=== PATIENT | female | born 1940 | race Caucasian/White ===

== ENCOUNTER 2018-01-02 11:17 | Emergency (ER) | payer MEDICAID ==
[~2018-01-02] VITALS: Ht 160 cm; Wt 50.0 kg
[~2018-01-02 11:17] MED LIST: AMLO10TA80 MT; APIX5TAB MT; ATEN100T MT; ATOR20TA65 MT; CENTRUM MULTIVITAMIN PO; DILT120C51 MT; DOCU-266 PO; LOSA50TA20 MT; METO-539 MT; PANT40TA4 PO; ROSU20TA29 MT
[2018-01-02] MEDS ORDERED: SODIUM CHLORIDE 0.9% 500 ML IV ONE (12:00)
[2018-01-02 13:50] VITALS: BP 140/60
== END 2018-01-02 14:05 | disposition home or self-care (01) ==
LOC: ER 11:26
DX: R00.2 Palpitations (principal); I11.9 Hypertensive heart disease without heart failure
CPT/HCPCS: 93005; 99283; J7040; X7700; Z7610